=== PATIENT | male | born 1975 | race Caucasian/White ===

== ENCOUNTER 2021-11-25 12:23 | Emergency (ER) | payer SELFPAY ==
[~2021-11-25] VITALS: Ht 170.2 cm; Wt 82.6 kg
--- NOTE | 2021-11-25 12:28 | NUR ---
LACERATION,RIGHT LEG,SUSTAINED WHILE USING A [employer] AT HOME
[2021-11-25] MEDS ORDERED: LIDOCAINE 1% INJ 50 ML MDV IJ ONE (12:37)
[2021-11-25] MEDS ORDERED: TDAP [DIPH/PERTUSSIS/TET] 0.5 ML VIAL IM ONE ×2 (12:51→13:00)
[2021-11-25] MEDS ORDERED: AMOX-430 PO (14:00)
--- NOTE | 2021-11-25 14:20 | NUR ---
Patient discharged to home in stable condition. Written and verbal after care instructions given. Patient verbalizes understanding of instruction.
[2021-11-25 14:22] VITALS: BP 131/85
== END 2021-11-25 14:46 | disposition home or self-care (01) ==
LOC: ER 12:24
DX: S81.811A Laceration without foreign body, right lower leg, initial encounter (principal); W31.89XA Contact with other specified machinery, initial encounter; Y93.89 Activity, other specified; Y92.89 Other specified places as the place of occurrence of the external cause; Y99.8 Other external cause status
CPT/HCPCS: 12002; 73590; 90471; 90715; 99283; A6403; J3490